=== PATIENT | male | born 1970 | race Caucasian/White ===

== ENCOUNTER 2016-11-21 09:52 | Emergency (ER) | payer OTHER, BC ==
--- NOTE | 2016-11-21 10:03 | EDM.PDOC ---
<Kiersten Ventura - Last Filed: 11/21/16 10:36> ED HPI Trauma - General Chief Complaint: Upper Extremity Injury/Pain Stated Complaint: SHOULDER Time Seen by Provider: 11/21/16 09:58 - History of Present Illness INITIAL COMMENTS - FREE TEXT/NARRATIVE: History of present illness: [46 yo male presents with left shoulder pain that started when he was lifting metal of about 50 lbs . He describes the pain in the anterior and posterior aspect of the shoulder. He is not able to lift anything heavy such as mildHe took some motrin 400 mg without relief. He took aleve this morning without relief. He is not able to lift his arm. Currently when he is resting his pain is 3/10. He denies chest pain, sob, n/v/d, numbness, tingling, changes in vision , headache, abdominal pain. ] Review of systems: As per history of present illness and below otherwise all systems reviewed and negative. Past medical history: As per history of present illness and as reviewed below otherwise noncontributory. Surgical history: As per history of present illness and as reviewed below otherwise noncontributory. Social history: No reported history of drug or alcohol abuse. Family history: As per history of present illness and as reviewed below otherwise noncontributory. Physical exam: General: Well developed, well nourished in NAD HEENT: Atraumatic, normocephalic, pupils reactive, negative for conjunctival pallor or scleral icterus, mucous membranes moist, throat clear, neck supple, nontender, trachea midline. Lungs: Clear to auscultation, breath sounds equal bilaterally, chest nontender. Heart: S1S2, regular, negative for clicks, rubs, or JVD. Abdomen: Soft, nondistended, nontender. Negative for masses or hepatosplenomegaly. Negative for costovertebral tenderness. Pelvis: Stable nontender. Genitourinary: Deferred. Rectal: Deferred. Extremities: Atraumatic, negative for cords or calf pain. Neurovascular unremarkable. Left Shoulder: tenderness on anterior aspect of the shoulder. Decreased ROM strength Neuro: Awake, alert, oriented. Cranial nerves II through XII unremarkable. Cerebellum unremarkable. Motor and sensory unremarkable throughout. Exam nonfocal. Diagnostics: [EKG, CXR, left shoulder xray.] Therapeutics: [Declined toradol ] Impression: [Left shoulder tendonitis ] Plan: medrol dose pack, diclofenac, flexeril follow up Dr. guzman ortho and PCP [Elevetaed blood pressure: patient does not want furnther workup.] Definitive disposition and diagnosis as appropriate pending reevaluation and review of above. Allergies/ADRs: Allergies No Known Allergies Allergy (Verified 11/21/16 10:13) Home Medications: Ambulatory Orders . [No Known Home Meds] 11/21/16 [Confirmed 11/21/16] Review of Systems - Review of Systems Review Of Systems: See Below (History of present illness) Trauma Exam - Physical Exam Exam: See Below (See history of present illness) Course - Vital Signs Last Recorded V/S: Last Vital Signs Temp 36.7 C 11/21/16 10:13 Pulse 85 11/21/16 10:13 Resp 18 11/21/16 10:13 BP 214/125 H 11/21/16 10:13 Pulse Ox 97 11/21/16 10:13 - Orders/Labs/Meds Orders: Active Orders 24 hr Category Date Time Status EKG Documentation Completion [RC] STAT Care 11/21/16 10:06 Active Departure - Departure Time of Disposition: 10:47 Disposition: Home, Self-Care 01 Condition: good Clinical Impression: Hypertension, Shoulder tendinitis Referrals: PCP,None [Primary Care Provider] - Noemí Guzman MD [Physician] - Forms: ED Department Discharge Additional Instructions: The following information is given to patients seen in the emergency department who are being discharged to home. This information is to outline your options for follow-up care. We provide all patients seen in our emergency department with a follow-up referral. The need for follow-up, as well as the timing and circumstances, are variable depending upon the specifics of your emergency department visit. If you don't have a primary care physician on staff, we will provide you with a referral. We always advise you to contact your personal physician following an emergency department visit to inform them of the circumstance of the visit and for follow-up with them and/or the need for any referrals to a consulting specialist. The emergency department will also refer you to a specialist when appropriate. This referral assures that you have the opportunity for follow-up care with a specialist. All of these measure are taken in an effort to provide you with optimal care, which includes your follow-up. Under all circumstances we always encourage you to contact your private physician who remains a resource for coordinating your care. When calling for follow-up care, please make the office aware that this follow-up is from your recent emergency room visit. If for any reason you are refused follow-up, please contact the [facility] Emergency Department at and asked to speak to the emergency department charge nurse. <Jammie Atwood - Last Filed: 11/21/16 10:51> ED HPI Trauma - History of Present Illness INITIAL COMMENTS - FREE TEXT/NARRATIVE: This is Dr. Atwood dictating an addendum note as a supervising physician on this case. I agree with history and physical as above and the patient states he does do a lot of lifting with his job and that the pain seemed to worsen after the activities described above. He has no weakness in the hand and arm but says that the pain shoots from the shoulder downward. He has no chest pain or shortness of breath and he says he has been monitoring his blood pressure at home and stopped taking his medications because he thought he was "normal". He has no end organ complaints and says that he does not one reevaluation of his blood pressure but we'll restart his meds and care clinic followup. Patient was offered Toradol along with the EKG and x-rays and he declined medications and the testing results have been reviewed by me. On my physical exam patient did have some trigger point tenderness and fullness without any palpable bony deformities and did have very limited range of motion at the shoulder both with abduction and rotator cuff engagement. He had no weakness of the arm just discomfort with movement. Advised to get followup in our ortho clinic as this may be an acute on chronic problem. Patient is comfortable with discharge home on anti-inflammatories. Impression: Left shoulder pain strain/bursitis rule out acute on chronic
--- NOTE | 2016-11-21 10:43 | CR ---
EXAMINATION: Two-view chest (PA and Lateral views). HISTORY: Left shoulder pain. FINDINGS: The trachea is midline. The cardiomediastinal silhouette is within normal limits. No pulmonary infil trates, effusions or pneumothorax. Osseous structures appear unremarkable. IMPRESSION: No acute cardiopulmonary process.
--- NOTE | 2016-11-21 10:44 | CR ---
EXAMINATION: Left shoulder HISTORY: Pain COMPARISON: None TECHNIQUE: 3 views FINDINGS: There is no acute osseous abnormality, dislocation, or fracture. Bone mineralization and j oint spaces appear normal. IMPRESSION: Grossly unremarkable left shoulder.
[2016-11-21 11:03] VITALS: BP 202/138
== END 2016-11-21 10:59 | disposition home or self-care (01) ==
LOC: MW.ED 09:52
DX: M75.82 Other shoulder lesions, left shoulder (principal); I10 Essential (primary) hypertension; X50.0XXA Overexertion from strenuous movement or load, initial encounter
CPT/HCPCS: 71020; 71020-26; 73030-26-LT; 73030-LT; 93005; 99283; 99283-25

== ENCOUNTER → 2016-12-03 | Outpatient (CLI) | payer OTHER ==
--- NOTE | 2016-12-04 08:44 | MR ---
EXAMINATION: MRI of the left shoulder HISTORY: Pain COMPARISON: Radiographs dated 11/21/2016 TECHNIQUE: Multiplanar and multisequence images obtained of the left shoulder without contrast. FINDINGS: There is a type II acromion. Mild acromioclavicular osteoarthritic changes are noted with a trace periarticular edema. There is a small undersurface tear measuring 5 mm of the distal suprasp inatus tendon just proximal to the footplate. The infraspinatus and teres minor tendons appears inta ct. The long head biceps tendon is present within the bicipital groove. There is moderately increase d signal in the tendon which appears flattened within the proximal bicipital groove. The subscapular is tendon appears intact with mildly increased signal at the proximal insertion. Trace joint effusio n is noted. The inferior glenohumeral ligament appears intact. The articular surfaces are grossly pr eserved. No suspicious bone marrow signal changes. IMPRESSION: 1. Small partial thickness undersurface tear of the distal supraspinatus tendon. 2. Moderate long head biceps tendinopathy. 3. Mild subscapularis tendinopathy. 4. Acromioclavicular osteoarthritic changes with mild periarticular edema.
== END ==
LOC: MW.MRI 13:29
PROVIDERS: ATTEND Physician Assistant
DX: S46.012A Strain of muscle(s) and tendon(s) of the rotator cuff of left shoulder, initial encounter (principal); M19.012 Primary osteoarthritis, left shoulder; M75.22 Bicipital tendinitis, left shoulder
CPT/HCPCS: 73221-26-LT; 73221-LT